=== PATIENT | male | born 1960 | race Caucasian/White ===

== ENCOUNTER → 2020-03-02 11:42 | Outpatient (CLI) | payer BC ==
[2014-10-18 08:15] VITALS: BMI 23.1
[~2020-03-02 11:42] MED LIST: ACETAMINOPHEN500 M1 PO; ASPIRIN81 MG PO; LOPRESSOR25 MG PO; NORCO 7.5/325 T1 TA1 PO; PLAVIX75 MG PO; PRAVACHOL20 MG PO
== END | disposition home or self-care (01) ==
LOC: D.HCCECHO 11:30
PROVIDERS: ATTEND Internal Medicine Cardiovascular Disease
DX: I25.10 Atherosclerotic heart disease of native coronary artery without angina pectoris (principal); I10 Essential (primary) hypertension